=== PATIENT | female | born 1985 | race Caucasian/White ===

== ENCOUNTER 2017-02-14 07:47 | Inpatient (IN) | payer OTHER ==
[2017-02-14] MEDS ORDERED: Oxytocin in LR* 20 UNITS/1,000 ML BAG IVPB SCH ×2 (09:00→18:00)
[2017-02-14 09:06] LABS: Hematocrit 35 % (35-47); Mean Corpuscular HGB Conc 32 g/dl (31-36); Mean Corpuscular Hemoglobin 24 pg (27-31); Mean Corpuscular Volume 75 fL (80-97); Mean Platelet Volume 8 um3 (7.4-10.4); Red Blood Count 4.65 10^6/ul (4.0-5.4); Red Cell Distribution Width 18 % (10.5-15); White Blood Count 14.2 10^3/ul (3.5-10.8)
[2017-02-14 09:21] LABS: BUN/Creatinine Ratio 12.7 (8-20); Calcium 8.8 mg/dL (8.6-10.3); EGFR African American 166.9 (>60); EGFR Non-African American 129.8 (>60); Globulin 3.4 g/dL (2-4); Potassium 3.9 mmol/L (3.5-5.0); Total Bilirubin 0.2 mg/dL (0.2-1.0); Total Protein 6.4 g/dL (6.4-8.9)
[2017-02-14] MEDS ORDERED: OBEPIDURAL* 250 ML ONE (11:31)
[2017-02-14] MEDS ORDERED: Ondansetron INJ* 2 MG/ML VIAL ONE (11:32)
[2017-02-14] MEDS ORDERED: Sodium Citrate/Citric Acid* 15 ML UDC PO PRN (12:26)
[2017-02-14] MEDS ORDERED: EPHEDrine (Pressors)* 50 MG/ML VIAL IV PUSH PRN ×2 (12:26)
[2017-02-14] MEDS ORDERED: Famotidine TAB* 20 MG PO PRN (12:26)
[2017-02-14] MEDS ORDERED: Phenylephrine IV* 40 MCG/ML 10 ML SYRINGE IV PUSH PRN ×2 (12:26)
[2017-02-14] MEDS ORDERED: Acetaminophen TAB* 325 MG PO PRN (17:49)
[2017-02-14] MEDS ORDERED: Dibucaine 1% 28.35 GM TUBE PR PRN (17:49)
[2017-02-14] MEDS ORDERED: Glycerin ADULT SUPP PR PRN (17:49)
[2017-02-14] MEDS ORDERED: Witch Hazel PAD* JAR TOPICAL PRN (17:49)
[2017-02-14] MEDS: OBEPIDURAL* 250 ML EPIDURAL SCH (20:46)
[2017-02-14] MEDS ORDERED: Simethicone CHEW TAB* 80 MG PO SCH (21:00)
[2017-02-15] MEDS: Ibuprofen TAB* 600 MG PO PRN ×4 (00:25→20:04)
[2017-02-15] MEDS: oxyCODONE/Acetamin 5/325 MG* TAB PO PRN ×3 (04:59→21:38)
[2017-02-15 07:33] LABS: Hematocrit 34 % (35-47); Hemoglobin 10.5 g/dl (12.0-16.0); Mean Corpuscular HGB Conc 31 g/dl (31-36); Mean Corpuscular Hemoglobin 24 pg (27-31); Mean Corpuscular Volume 77 fL (80-97); Mean Platelet Volume 8 um3 (7.4-10.4); Red Blood Count 4.39 10^6/ul (4.0-5.4); Red Cell Distribution Width 17 % (10.5-15); White Blood Count 18.3 10^3/ul (3.5-10.8)
[2017-02-15] MEDS: Docusate CAP* 100 MG PO SCH ×4 (07:57→21:39)
[2017-02-15] MEDS: Sertraline* 50 MG TAB PO SCH (07:57)
[2017-02-15] MEDS ORDERED: Measles, Mumps,Rubella VACC* 0.5 ML/VIAL SUBCUT ONE (09:00)
[2017-02-15] MEDS ORDERED: Ferrous Gluconate TAB* 324 MG TAB PO SCH (09:00)
[2017-02-15] MEDS: OBEPIDURAL* 250 ML EPIDURAL SCH (14:20)
[2017-02-16] MEDS: Ibuprofen TAB* 600 MG PO PRN ×2 (02:11→08:36)
[2017-02-16 08:19] VITALS: BP 148/84
[2017-02-16] MEDS: Sertraline* 50 MG TAB PO SCH (08:36)
[2017-02-16] MEDS: oxyCODONE/Acetamin 5/325 MG* TAB PO PRN (10:56)
== END 2017-02-16 13:15 | disposition home or self-care (01) | DRG 560 ==
LOC: MCHOBOUT 07:47 → MCHOB 08:25
PROVIDERS: ADMIT Midwife; ATTEND Midwife
PROC: 10E0XZZ Delivery of Products of Conception, External Approach (ICD-10-PCS; principal; 2017-02-14)
PROC: 3E033VJ Introduction of Other Hormone into Peripheral Vein, Percutaneous Approach (ICD-10-PCS; 2017-02-14)
DX: O99.824 Streptococcus B carrier state complicating childbirth (principal); O99.344 Other mental disorders complicating childbirth; F32.9 Major depressive disorder, single episode, unspecified; O69.81X0 Labor and delivery complicated by cord around neck, without compression, not applicable or unspecified; Z87.891 Personal history of nicotine dependence; Z3A.39 39 weeks gestation of pregnancy; Z37.0 Single live birth
CPT/HCPCS: 36415; 80053; 81002; 84550; 85025; 86850; 86900; 86901; 90707; A9270-GY; J2405